=== PATIENT | female | born 1950 | race Caucasian/White ===

== ENCOUNTER 2017-02-13 13:29 | Emergency (ER) | payer MEDICARE, OTHER ==
[~2017-02-13] VITALS: Ht 175.3 cm; Wt 90.7 kg
[2017-02-13 13:47] VITALS: BP 136/70
[2017-02-13] MEDS ORDERED: IPRATRPIUM/ALBUTEROL 0.5/2.5MG 3 ML NEBU. NEB ONE (14:00)
[2017-02-13 14:40] LABS: INFLUENZA A PATIENT NEGATIVE (NEGATIVE); INFLUENZA B PATIENT NEGATIVE (NEGATIVE)
--- NOTE | 2017-02-13 14:40 | RAD ---
Indication cough shortness of breath. Frontal and lateral views of the chest were obtained. No prior imaging of the chest is available. The heart and pulmonary vessels appear normal. The lungs are clear of acute infiltrates. Significant pleural fluid is not seen. There is no pneumothorax. IMPRESSION: No acute or focal process is seen in the chest
[2017-02-13] MEDS ORDERED: AMOX500C PO (15:23)
[2017-02-13] MEDS ORDERED: BECL8.7A6 IH (15:23)
[2017-02-13] MEDS ORDERED: ALBU18HF IH (15:23)
[2017-02-13] MEDS ORDERED: FLUT9.9S NS (15:23)
--- NOTE | 2017-02-13 15:23 | PHYS DOC ---
Past History Past Medical History: No Pertinent History Past Surgical History: Cholecystectomy, , Hysterectomy, Tubal ligation Alcohol Use: None Drug Use: None Adult General Chief Complaint Chief Complaint: MULTIPLE COMPLAINTS HPI HPI Patient is a 66 year old F who presents with cough, congestion and body aches. Mariluz has been having these symptoms over the past 3-4 days. She feels that they have been gradually worsening. She does have associated nausea and occasional abdominal discomfort. She feels that her symptoms are worse with activity and improved with rest. Review of Systems Review of Systems Constitutional: Denies fever or chills [] Eyes: Denies change in visual acuity, redness, or eye pain [] HENT: Mild to moderate nasal congestion, sore throat, and sinus tenderness Respiratory: Negative except history of present illness Cardiovascular: No additional information not addressed in HPI [] GI: Negative except history of present illness : Denies dysuria or hematuria [] Musculoskeletal: Denies back pain or joint pain [] Integument: Denies rash or skin lesions [] Neurologic: Denies focal weakness or sensory changes [] Endocrine: Denies polyuria or polydipsia [] Family History Family History Noncontributory Current Medications Current Medications Current Medications Medications (Trade) Dose Ordered Sig/Julien Start Time Stop Time Status Last Admin Dose Admin Albuterol/ Ipratropium (Duoneb) 3 ml 1X ONCE 02/13/17 14:00 02/13/17 14:37 DC 02/13/17 13:59 3 ML Allergies Allergies Allergies Coded Allergies Type Severity Reaction Last Updated Verified No Known Drug Allergies 02/13/17 No Physical Exam Physical Exam Constitutional: Well developed, well nourished, no acute distress, non-toxic appearance. [] HENT: Normocephalic, atraumatic, erythema over the maxillary sinuses and frontal sinus with moderate tenderness. Moderate nasal congestion with mucus. Mild erythema of the pharynx. Eyes: EOMI, conjunctiva normal, no discharge. [] Neck: Normal range of motion, no tenderness, supple, no stridor. [] Cardiovascular:Heart rate regular rhythm, Lungs & Thorax: Bilateral breath sounds clear to auscultation [] Abdomen: Bowel sounds normal, soft, no tenderness, no masses, no pulsatile masses. [] Skin: Warm, dry, no erythema, no rash. [] Back: No tenderness, no CVA tenderness. [] Extremities: No tenderness, no cyanosis, no clubbing, ROM intact, no edema. [] Neurologic: Alert and oriented X 3, normal motor function, normal sensory function, no focal deficits noted. [] Psychologic: Affect normal, judgement normal, mood normal. [] Current Patient Data Vital Signs Vital Signs Date Time Temp Pulse Resp B/P (MAP) Pulse Ox O2 Delivery O2 Flow Rate FiO2 02/13/17 14:02 95 Room Air 02/13/17 13:47 98.7 87 16 Lab Results Laboratory Tests Test 02/13/17 13:54 02/13/17 13:55 Group A Streptococcus Rapid Negative (NEGATIVE) Influenza Type A (Rapid) Negative (NEGATIVE) Influenza Type B (Rapid) Negative (NEGATIVE) Radiology/Procedures Radiology/Procedures Chest x-ray Impressions: No acute disease Course & Med Decision Making Course & Med Decision Making Pertinent Labs and Imaging studies reviewed. (See chart for details) Dragon Disclaimer Dragon Disclaimer This chart was dictated in whole or in part using Voice Recognition software in a busy, high-work load, and often noisy Emergency Department environment. It may contain unintended and wholly unrecognized errors or omissions. Departure Departure: Impression: Primary Impression: Sinusitis Additional Impression: Bronchitis Disposition: 01 HOME, SELF-CARE Condition: STABLE Referrals: NON,STAFF (PCP) Patient Instructions: Acute Bronchitis, Sinusitis Additional Instructions: Mariluz was seen in the emergency department for congestion, headache and off. No emergency medical condition was found on history or physical exam. Her symptoms are most consistent with bacterial sinusitis with bronchitis. She was started on oral antibiotic in the emergency room. She was given a prescription for inhalers, nasal spray and antibiotics. She was strongly advised consider nasal saline rinses regularly. She is advised follow-up with her primary care doctor in the next 3-5 days for further management. She was also advised to return to the emergency room if she develops new or worsening symptoms. Scripts Fluticasone Propionate (Flonase Allergy Relief) 9.9 Ml [place].susp 1 SPRAYS NS BID for 7 Days, BOTTLE Prov: CLEO BIGGS MD 02/13/17 Albuterol Sulfate (VENTOLIN HFA INHALER) 18 Gm Hfa.aer.ad 1 PUFF IH PRN Q4HRS Y for COUGH for 7 Days, INHALER 0 Refills Prov: CLEO BIGGS MD 02/13/17 Beclomethasone Dipropionate (QVAR 80MCG INHALER) 8.7 Gm Aer.w.adap 1 PUFF IH BID for 7 Days, INHALER Prov: CLEO BIGGS MD 02/13/17 Amoxicillin (AMOXICILLIN) 500 Mg Capsule 1 CAP PO TID for 7 Days, #21 CAP Prov: CLEO BIGGS MD 02/13/17 Problem Qualifiers Primary Impression: Sinusitis Sinusitis location: maxillary Chronicity: acute Recurrence: not specified as recurrent Qualified Codes: J01.00 - Acute maxillary sinusitis, unspecified CLEO BIGGS MD Feb 13, 2017 15:23
[2017-02-13] MEDS ORDERED: AMOXICILLIN 250 MG CAPSULE PO ONE (15:45)
== END 2017-02-13 15:34 | disposition home or self-care (01) ==
LOC: ER 13:29
DX: J40 Bronchitis, not specified as acute or chronic (principal); J01.00 Acute maxillary sinusitis, unspecified
CPT/HCPCS: 71020; 87070; 87804; 87880; 94640; 99285; J7620